=== PATIENT | female | born 1945 | race Caucasian/White ===

== ENCOUNTER → 2017-11-06 | Outpatient (CLI) | payer MEDICARE, OTHER ==
[~2017-11-06] MED LIST: COSOPT 2%-0.5%10 ML OU; COSOPT EYE; GLUCOPHAGE1000 MG PO; LIPITOR20 MG PO; PREDNISOLONE; SYSTANE 0.3-0.1 EACH OP; XALATAN EYE DROPS OU; ZESTRIL 5MG5 MG PO
== END ==
LOC: COL.RAD 14:05
DX: E04.2 Nontoxic multinodular goiter (principal)

== ENCOUNTER → 2018-12-22 | Outpatient (CLI) | payer MEDICARE, OTHER | LOC: COL.RAD 10-20 12:45 | DX: E04.2 Nontoxic multinodular goiter (principal) ==

== ENCOUNTER 2021-12-22 11:21 | Day surgery (SDC) | payer MEDICARE, OTHER ==
[~2021-12-22] VITALS: Ht 152.4 cm; Wt 63.1 kg
[2021-12-22] MEDS ORDERED: RYBELSUS7 MG PO (12:32)
[2021-12-22] MEDS ORDERED: TIMOLOL MALEATE5 M1 OP (12:32)
[2021-12-22] MEDS ORDERED: RYBELSUS3 MG PO (12:32)
[2021-12-22] MEDS ORDERED: CYMBALTA 20MG20 MG PO (12:33)
[2021-12-22 12:49] VITALS: BP 111/75; PULSE 86; TEMP 97.6
--- NOTE | 2021-12-22 13:06 | NUR ---
Initial visit; Patient thanked Pin Worker for offering comfort, encouragement and prayer prior to her 'Procedures' and that they aid in her recovering from her health issues.
[2021-12-22 14:55] VITALS: BP 116/67; PULSE 68; TEMP 97.6
[2021-12-22 15:00] VITALS: BP 134/63; PULSE 70
[2021-12-22 15:15] VITALS: BP 144/61; PULSE 75
[2021-12-22 15:30] VITALS: BP 133/59; PULSE 69
[2021-12-22 15:45] VITALS: BP 118/50; PULSE 80
--- NOTE | 2021-12-22 16:15 | NUR ---
1455 Pt returns from endo procedure via cart and RN assist to [facility]. Pt ambulates from cart to recliner with RN assist. Monitors on and alarms set. Call light within reach. Report received from [facility]. Pt alert and oriented. Pt requests juice and crackers. Pt denies any pain or nausea. 1515 Pt taking food and drink well. No complications noted. 1557 Pt ambulates to restroom with RN assist. RN remains with pt. 1605 Pt ambulates back to [facility] with RN assist. 1608 Discharge instructions given to pt and friend. All questions answered to their satisfaction. Handed to pt are a thank you card and discharge information. 1615 Pt transferred out of the hospital via wheelchair and RN assist, to private vehicle driven by friend.
== END 2021-12-22 16:15 | disposition home or self-care (01) ==
LOC: SDCO 11:21
DX: D12.5 Benign neoplasm of sigmoid colon (principal); D12.9 Benign neoplasm of anus and anal canal; K57.30 Diverticulosis of large intestine without perforation or abscess without bleeding; K64.1 Second degree hemorrhoids; K59.00 Constipation, unspecified; K29.70 Gastritis, unspecified, without bleeding
CPT/HCPCS: J2704; J7120